=== PATIENT | male | born 1930 | race Caucasian/White ===

== ENCOUNTER 2018-01-23 08:34 | Day surgery (SDC) | payer MEDICARE, BC ==
[2018-01-18 12:40] LABS: BASOPHILS # (AUTO) 0.1 X10'3 (0-0.2); BASOPHILS % (AUTO) 0.9 % (0-1); EOSINOPHILS # (AUTO) 0.4 X10'3 (0-0.9); EOSINOPHILS % (AUTO) 4.3 % (0-6); HEMATOCRIT 40.6 % (42.0-52.0); HEMOGLOBIN 13.4 g/dl (14.0-17.9); LYMPHOCYTES % (AUTO) 46.1 % (21-51); MEAN CORPUSCULAR HEMOGLOBIN 29.4 PG (27.0-31.0); MEAN CORPUSCULAR HGB CONC 33.1 % (33.0-36.5); MEAN CORPUSCULAR VOLUME 88.8 FL (78-98); MEAN PLATELET VOLUME 9.7 FL (7.4-10.4); MONOCYTES # (AUTO) 0.7 X10'3 (0-0.9); MONOCYTES % (AUTO) 7.9 % (2-12); NEUTROPHILS # (AUTO) 3.6 X10'3 (1.8-7.7); NEUTROPHILS % (AUTO) 40.8 % (42-75); PLATELET COUNT 142 X10'3 (140-440); RED BLOOD COUNT 4.57 X10'6 (4.70-6.10); RED CELL DISTRIBUTION WIDTH 14.7 % (11.5-14.5); WHITE BLOOD COUNT 8.8 X10'3 (4.5-11.0)
[2018-01-18 12:49] LABS: INR 2.2 INR; PARTIAL THROMBOPLASTIN TIME 32 SECONDS (22-32)
[2018-01-18 12:57] LABS: ALANINE AMINOTRANSFERASE 35 U/L (12-78); ALBUMIN 3.6 G/DL (3.4-5.0); ALBUMIN/GLOBULIN RATIO 1.2 (1.1-1.5); ALKALINE PHOSPHATASE 63 IU/L (46-116); ANION GAP 7 (8-16); ASPARTATE AMINO TRANSFERASE 34 U/L (10-37); BILIRUBIN,TOTAL 1.6 MG/DL (0.1-1.0); BLOOD UREA NITROGEN 12 MG/DL (7-18); BUN/CREATININE RATIO 11.7 (5.4-32.0); CALCIUM 8.5 MG/DL (8.5-10.1); CHLORIDE 106 MMOL/L (99-107); CREATININE 1.03 MG/DL (0.60-1.10); GLUCOSE 103 MG/DL (70-104); POTASSIUM 3.6 MMOL/L (3.5-5.1); SODIUM 142 MMOL/L (135-145); TOTAL CARBON DIOXIDE 29.4 MMOL/L (24-32); TOTAL PROTEIN 6.7 G/DL (6.4-8.2); eGFR 68 ML/MIN
[2018-01-23] VITALS (12 sets, daily range): BP systolic 110–157; BP diastolic 40–93
[~2018-01-23 08:34] MED LIST: CARV3.122 PO; COU5T PO; LEVO100T PO; OMEP20CA10 PO; SIMV20TA5 PO
[2018-01-23] MEDS ORDERED: nitroGLYCERIN 0.4mg SUBLingual tab SL PRN (08:55)
[2018-01-23] MEDS ORDERED: normal saline 1000ml 1,000 ML IV SCH (08:55)
[2018-01-23] MEDS ORDERED: LORazepam 0.5 MG tablet PO PRN (08:55)
[2018-01-23] MEDS ORDERED: diphenhydrAMINE 25mg capsule PO PRN (08:55)
[2018-01-23] MEDS ORDERED: CHOL100046 PO (09:36)
[2018-01-23] MEDS ORDERED: ATOR20TA PO (09:36)
[2018-01-23] MEDS ORDERED: ACET-2119 PO (09:36)
[2018-01-23] MEDS ORDERED: CART1TAB5 PO (09:36)
[2018-01-23] MEDS ORDERED: iohexol 350 MG/ML 50ML vial IV ONE ×2 (10:16→11:00)
[2018-01-23] MEDS ORDERED: LIDOcaine 1% w/EPI 1:100,000 30ml vial (MDV) ONE (10:16)
[2018-01-23] MEDS ORDERED: midazolam 2 mg/2 ml injection ONE (10:16)
[2018-01-23] MEDS ORDERED: iohexol 350MG/ML 100ml bottle IV ONE (10:16)
[2018-01-23] MEDS ORDERED: fentaNYL/PF 50MCG/1 ML 2ML syringe ONE (10:16)
[2018-01-23 10:44] LABS: INR 1.5 INR; PROTHROMBIN TIME 15.6 SECONDS (9.0-12.0)
[2018-01-23] MEDS ORDERED: nitroGLYCERIN-Tridil 50MG/D5W 250 ML IV ONE (11:17)
[2018-01-23] MEDS ORDERED: enalaprilat dihydrate 2.5mg/2ml vial IV ONE (11:18)
[2018-01-23] MEDS ORDERED: HYDROcodone/acetaminophen 10/325mg tab PO PRN (13:10)
[2018-01-23] MEDS ORDERED: HYDROcodone/acetaminophen 5mg/325mg tablet PO PRN (13:10)
[2018-01-23] MEDS ORDERED: proCHLORperazine 10 MG/2 ml inj IV PRN (13:10)
[2018-01-23] MEDS ORDERED: ondansetron/PF 4mg/2ml inj IV PRN (13:10)
[2018-01-23] MEDS ORDERED: OXAZEpam 15mg capsule PO PRN (13:10)
== END 2018-01-23 18:00 | disposition home or self-care (01) ==
LOC: SSTAY O 08:34
PROVIDERS: ATTEND Internal Medicine Cardiovascular Disease
DX: I25.10 Atherosclerotic heart disease of native coronary artery without angina pectoris (principal); I08.0 Rheumatic disorders of both mitral and aortic valves; I48.2 Chronic atrial fibrillation; E78.5 Hyperlipidemia, unspecified; I48.91 Unspecified atrial fibrillation; I45.81 Long QT syndrome; I10 Essential (primary) hypertension; K21.9 Gastro-esophageal reflux disease without esophagitis; E03.9 Hypothyroidism, unspecified; Z87.891 Personal history of nicotine dependence; Z79.891 Long term (current) use of opiate analgesic; Z79.01 Long term (current) use of anticoagulants; Z88.6 Allergy status to analgesic agent; Z91.018 Allergy to other foods; Z85.46 Personal history of malignant neoplasm of prostate; Z90.49 Acquired absence of other specified parts of digestive tract; Z79.899 Other long term (current) drug therapy; Z98.890 Other specified postprocedural states
CPT/HCPCS: 36415; 71046; 80053; 85025; 85610; 85730; 93005; 93458; 93567; 99152; 99153; A6257; C1760; C1769; J1644; J2250; J3010; J3490; J7030; Q0163; Q9967; A4620